=== PATIENT | female | born 1995 | race Caucasian/White ===

== ENCOUNTER 2018-08-31 16:07 | Emergency (ER) | payer SELFPAY ==
[2018-08-31 16:08] VITALS: BP 114/65; PULSE 85; RESP 14; TEMP 36.7; O2SAT 99; BMI 21.4
--- NOTE | 2018-08-31 16:39 | ED.VIS.GEN ---
History of Present Illness Chief Complaint: GI Bleed Informant: Patient Narrative: Patient presents to the ED with lower abdominal cramping. She states that this began several hours ago. She did have 2 large episodes of diarrhea associated with this. Following the 2 episodes of diarrhea. She had a episode of hematochezia. She states that some of her symptoms did improve after this. She has had something similar to this in the past, however has never been evaluated for it. She states this has been ongoing for the last year. She has noticed that when she eats fatty breakfast foods the symptoms occur. She denies any fever, chills, nausea, vomiting. She did not take anything for symptoms. She has no medical problems. No history of abdominal surgeries. Past Medical History - Allergies and Home Meds Allergies/Adverse Reactions: Allergies No Known Allergies Allergy (Verified 08/31/18 16:10) Primary Care Physician: Care Physician,No Primary [Primary Care Provider] - Smoking Status: Current every day smoker Review of Systems General: Denies: Chills, Fever, Sweats Eyes: Denies: Visual changes - bilaterally, Diplopia ENT: Denies: Rhinorrhea, Sore throat Cardiovascular: Denies: Chest pain, Palpitations Respiratory: Denies: Dyspnea, Cough, Dyspnea on exertion Gastrointestinal: Reports: Abdominal pain, Diarrhea, Hematochezia Genitourinary: Denies: Dysuria, Hematuria, Frequency Musculoskeletal: Denies: Back pain, Extremity Pain Skin: Denies: Rash, Wounds Neurological: Denies: Headache, Weakness, Numbness Physical Exam Vital Signs/Narrative: Vital Signs Temp Pulse Resp BP Pulse Ox 08/31/18 16:08 98.1 F 85 14 114/65 99 General: Well nourished, Well developed, No Acute Distress Head: Normocephalic, Atraumatic Eyes: Perrl, EOMI ENT: Moist mucous membranes, No rhinorrhea Neck: Supple, Nontender Cardiovascular: Regular rate, Regular rhythm, No murmurs Respiratory: No distress, CTA bilaterally, Chest nontender Abdomen: Soft, Nondistended, Normal bowel sounds, Tender - Lower. Negative for: Guarding, Rebound tenderness, Psoas sign, Obturator sign, Rovsig's sign, Potter's sign Back: Nontender, Normal Inspection Extremities: Nontender, No edema Skin: Normal color, No rash Neurological: Alert, Oriented x3, Cranial nerves II-XII grossly intact, Normal Strength, Normal Sensation Psychological: Normal affect, Normal Mood Diagnostic/Tx/Re-eval - Medical Decision Making Patient presents to the ED with lower abdominal cramping and 2 episodes of diarrhea this morning. She did have an episode of hematochezia following. She has had this issue chronically. She does not have a PCP. Upon arrival, patient appears well nontoxic. Abdominal exam is very benign. Lab work was obtained and was unremarkable. At this time, I think it is safe the patient be discharged home. She was given a prescription for Bentyl. She was given GI to follow-up with. She was educated on signs/symptoms to return to the ED. She is provided discharge instructions. She is agreeable to plan Disposition: Home stable Impression: Lower abdominal cramping. Diarrhea. Hematochezia. ED Disposition - Plan for ED Patient: Disposition: Home or Assisted Living Diagnosis: Abdominal pain Instructions: Abdominal Pain Prescriptions: Dicyclomine HCl [Bentyl] 20 mg PO TIDAC #30 cap Prescription Printed Referrals: Care Physician,No Primary [Primary Care Provider] - Anurag Posadas MD [NON-STAFF] -
[2018-08-31 17:25] LABS: Absolute Lymphocyte Count 1.59 X10^3/ul (0.83-4.51); Absolute Neutrophil Count 6.3 X10^3/uL (2.0-7.7); Basophil# 0.01 X10^3/uL; Basophil% 0.1 % (0-1); Hematocrit 42.7 % (37-47); Hemoglobin 14.5 g/dl (12.0-15.0); Lymphocyte # 1.59 X10^3/ul (4.0); Lymphocyte % 19.2 % (19-41); Mean Corpuscular Hgb 31.5 pg (27.0-32.0); Mean Corpuscular Volume 92.6 fL (81-99); Mean Platelet Vol. 10.4 fl (6.2-12.0); Monocyte# 0.35 X10^3/uL; Monocyte% 4.2 % (0-10); Neutrophil # 6.33 X10^3/uL (2.7-7.7); Neutrophil % 76.4 % (47-70); Platelet Count 159 K/mm3 (150-450); RBC Distribution Width CV 12.1 % (11.6-14.6); RBC Distribution Width SD 41.1 fl (35.1-43.9); Red Blood Count 4.61 M/mm3 (4.2-5.4); White Blood Count 8.3 K/mm3 (4.4-11.0)
[2018-08-31 17:26] LABS: POSITIVE COUNT NO; POSITIVE DIFFERENTIAL NO; POSITIVE MORPHOLOGY NO
[2018-08-31 17:41] LABS: AST(SGOT) 22 U/L (15-37); Alanine Aminotransfer ALT/SGPT 19 U/L (13-56); Alkaline Phosphatase 77 U/L (45-117); Anion Gap 9 (5-15); BUN 17 mg/dL (7-18); BUN/Creat Ratio 17.4 RATIO (10-20); Calcium,Total 9.2 mg/dL (8.5-10.1); Chloride 105 mmol/L (98-107); Creatinine, Serum 0.98 mg/dL (0.55-1.02); EST Glomerular Filtration Rate 74 mL/min (>60); Est Glom Filt Rate - Afr Amer 89 mL/min (>60); Estimated Creatinine Clearance 89.15 ml/min; Glucose 92 mg/dL (74-106); Lipase 118 U/L (73-393); Sodium Level 140 mmol/L (136-145)
[2018-08-31 17:52] VITALS: BP 104/65; PULSE 65; RESP 15
== END 2018-08-31 17:52 | disposition home or self-care (01) ==
PROVIDERS: Emergency Provider Physician Assistant
DX: R10.30 Lower abdominal pain, unspecified (principal); R19.7 Diarrhea, unspecified; K92.1 Melena; F17.200 Nicotine dependence, unspecified, uncomplicated
CPT/HCPCS: 80053; 83690; 85025; 99285; A4216

== ENCOUNTER 2022-07-21 04:47 | Emergency (ER) | payer MEDICAID, SELFPAY ==
[2022-07-21 04:51] VITALS: BP 111/76; PULSE 70; RESP 18; TEMP 36.4; O2SAT 100; BMI 22.7
--- NOTE | 2022-07-21 05:01 | EX.ED.DYSGE1 ---
HPI History of Present Illness Chief Complaint: Ear Problem Detail of Chief Complaint: Left ear pain Informant: patient Onset/Context/Timing Onset: Days (4 to 5 days) Context: Gradual Onset Current Severity: Moderate Maximum Severity: Severe Narrative Narrative: Patient presents secondary to left ear pain. She states pain started 4 to 5 days ago and was rather mild in onset. It is progressively worsened each day. It bothered her enough yesterday that she put in request to establish care with a primary care physician to have it evaluated. Tonight she was unable to sleep secondary to pain. She has been taking Advil and Tylenol without improvement. She reports pain in the left ear that radiates down along her left jaw. PFSH PFSH Medical History no medical history no medical history Home Medications amoxicillin 875 mg-potassium clavulanate 125 mg tablet 1 tab PO BID #20 tabs 07/21/22 [Rx Last Taken Unknown] naproxen 500 mg tablet (Naprosyn) 500 mg PO BID PRN pain #20 tabs 07/21/22 [Rx Last Taken Unknown] Allergy/AdvReac Type Severity Reaction Status Date / Time No Known Allergies Allergy Verified 07/21/22 04:48 Surgical History no surgical history Social History Smoking Status: Current every day smoker tobacco type: e-cigarettes ROS ROS ED Constitutional Constitutional ED: Denies chills or fever(s) Eyes Eyes: Denies change in vision or discharge from eye(s) ENT ENT ED: Reports ear pain left; Denies discharge from eye(s), rhinorrhea or sore throat Cardiovascular Cardiovascular: Denies chest pain or palpitations Respiratory/Chest Respiratory/Chest: Denies cough or dyspnea Gastrointestinal Gastrointestinal: Denies abdominal pain, nausea or vomiting Genitourinary Genitourinary ED: Denies dysuria Musculoskeletal Musculoskeletal: Denies back pain or extremity pain Integumentary Denies Abrasions or rash Neurologic Neurologic: Denies headache(s) or weakness Allergic/Immunologic Allergic/Immunologic ED: Denies lip swelling or urticaria EXAM Physical Exam Const Vital Signs: 07/21/22 04:51 Temperature 97.5 F L Temperature Source Oral Pulse Rate 70 Respiratory Rate 18 Blood Pressure 111/76 Blood Pressure Mean 87 Pulse Ox 100 Oxygen Delivery Method Room Air Positive well nourished and well developed General Appearance ED: well developed HEENT Reports normocephalic and head/scalp atraumatic HEENT Narrative: Right TM is clear. Left TM has white fluid behind the membrane. Intraoral examination reveals fractured left mandibular third molar with mild surrounding gum edema. Posterior pharynx examination is normal. There is no trismus. Eyes PERRL and EOMs intact bilaterally Neck supple Chest Wall inspection of chest normal and palpation of chest normal Resp normal respiratory effort and clear to auscultation bilaterally Cardio regular rate and regular rhythm GI normal to inspection, nondistended, normoactive bowel sounds Palpation: soft Extremity normal to inspection Neuro oriented x3 and no sensory deficits noted Sensorium / Orientation: alert Motor Exam: strength 5/5 throughout Psych mental status grossly normal Skin no rashes or lesions noted MDM MDM MDM Narrative Medical decision making narrative: Patient does have evidence of left otitis media along with a dental infection. She will be treated with a course of Augmentin. I will also write her a prescription for naproxen. She will be given a single dose of Gregory here for pain but will not be given any narcotics for home. Patient is comfortable with this plan. Discharge Plan Triage Chief Complaint: Ear Problem ED Provider: Maddy Childs Dx/Rx/DC Orders Clinical Impression: Left otitis media, Odontalgia Instructions: ED Dental Pain, ED Otitis Media Antibiotic ... Prescriptions: New naproxen [Naprosyn] 500 mg tablet 500 mg PO BID PRN (Reason: pain) Qty: 20 0RF amoxicillin-pot clavulanate 875-125 mg tablet 1 tab PO BID Qty: 20 0RF Primary Care Provider: Care Physician,No Primary Referrals: Care Physician,No Primary [Primary Care Provider] - Activity Restrictions/Additional Instructions: You called yesterday to establish a primary care physician. Please follow-up with that provider. Disposition Disposition: Home, Self Care
[2022-07-21] MEDS: HYDROcodone Bitartrate/Apap 5/325 Tablet PO (05:11)
[2022-07-21] MEDS: Amox/Clavulanate 875 MG Tablet PO (05:11)
[2022-07-21] MEDS: Naproxen 500 MG Tablet PO (05:11)
== END 2022-07-21 05:26 | disposition home or self-care (01) ==
PROVIDERS: Emergency Provider Emergency Medicine; Visit Provider Emergency Medicine
DX: H66.92 Otitis media, unspecified, left ear (principal); K08.89 Other specified disorders of teeth and supporting structures; F17.290 Nicotine dependence, other tobacco product, uncomplicated
CPT/HCPCS: 99283

== ENCOUNTER 2023-03-23 06:50 | Emergency (ER) | payer MEDICAID, SELFPAY ==
[2023-03-23 06:51] VITALS: BP 122/79; PULSE 70; RESP 16; TEMP 35.8; O2SAT 95; BMI 25.6
--- NOTE | 2023-03-23 06:56 | ED.VIS.DENTA ---
HPI History of Present Illness Chief Complaint: Dental Informant: patient Narrative Narrative: 27-year-old female started having gradual onset dental pain left mandibular molar couple days ago, this morning it is severe to the point where she is having trouble sleeping. She has been taking Advil and it is helping some, tried naproxen which did not help at all. Decay on the affected tooth is not new. She denies any facial swelling or bleeding from the gums/tooth. No purulent nasal discharge. PFSH PFSH Medical History no medical history no medical history Home Medications amoxicillin 500 mg tablet 500 mg PO TID #30 tabs 03/23/23 [Rx Last Taken Unknown] tramadol 50 mg tablet 50 mg PO Q6H PRN pain 3 days #12 tabs 03/23/23 [Rx Last Taken Unknown] Allergy/AdvReac Type Severity Reaction Status Date / Time No Known Allergies Allergy Verified 03/23/23 06:50 Surgical History no surgical history Social History Smoking Status: Current every day smoker tobacco type: e-cigarettes ROS ROS ED Constitutional Constitutional ED: Denies chills or fever(s) Eyes Eyes: Denies change in vision or double vision ENT ENT ED: Reports dental pain; Denies sinus pain or throat swelling Cardiovascular Cardiovascular: Denies chest pain or palpitations Respiratory/Chest Respiratory/Chest: Denies cough or dyspnea Integumentary Denies abscess or rash Neurologic Neurologic: Denies headache(s), paresthesias or weakness EXAM Physical Exam Const Vital Signs: 03/23/23 06:51 Temperature 96.4 F L Temperature Source Temporal Pulse Rate 70 Respiratory Rate 16 Blood Pressure 122/79 H Blood Pressure Mean 93 Pulse Ox 95 Oxygen Delivery Method Room Air Positive well nourished and well developed General Appearance ED: well developed and NAD HEENT HEENT Narrative: Tender significant decay in tooth #18. #19 is decayed as well but nontender. There is no associated abscess with either one of them, no gingival necrosis or bleeding or hyperemia. No trismus. Tongue no elevation, floor of mouth is soft nondistended. No external facial swelling or asymmetry. No dysphonia. Face and Sinus: sinuses nontender Throat: posterior oropharynx normal Eyes PERRL and EOMs intact bilaterally Neck no lymphadenopathy and supple Resp normal respiratory effort Neuro oriented x3 and CN's II-XII intact bilaterally Sensorium / Orientation: alert Gait (Neuro): normal gait Psych mental status grossly normal and thought process normal Skin no rashes or lesions noted and no wounds MDM MDM MDM Narrative Medical decision making narrative: Likely early dental infection with multifocal decay, dental follow-up recommended I recommend antibiotics, start her on amoxicillin as well as a short prescription for tramadol after checking an [facility] report that is completely negative. She is comfortable with that plan. Discharge Plan Triage Chief Complaint: Dental ED Provider: Derick García Dx/Rx/DC Orders Clinical Impression: Dental decay, Odontalgia Instructions: ED Dental Pain Prescriptions: New tramadol 50 mg tablet 50 mg PO Q6H PRN (Reason: pain) 3 Days Qty: 12 0RF amoxicillin 500 mg tablet 500 mg PO TID Qty: 30 0RF Primary Care Provider: Care Physician,No Primary Referrals: Dentist,Your [STAFF PHYSICIAN] - As soon as possible Disposition Disposition: Home, Self Care
[2023-03-23] MEDS: AMOXICILLIN 500 MG CAPSULE PO (07:02)
--- OUTSIDE RECORDS SUMMARY | 2023-03-23 07:33 | XMS RPT_ITS | CCD ---
Author Name Unknown Address [address] [place] [address] Organization [facility] Care Team Providers Care Contract Engineer Name Role Phone Cathi IT PROFESSIONALGuille AYALA Primary Care Provider GUILLE GATES Primary Care Unavailable GUILLE GATES Attending Unavailable GUILLE GATES Primary Care Unavailable SHAKIRA BLEDSOE Attending Unavailable GUILLE GATES Referring Unavailable GUILLE GATES Primary Care Unavailable GUILLE GATES Referring Unavailable GUILLE GATES Primary Care Unavailable GUILLE GATES Attending Unavailable Medications Completed/Discontinued Medications Medication Drug Class(es) Dates Sig (Normalized) Sig (Original) busPIRone hydrochloride 5 mg oral tablet (6 sources) Start: 10-17-2022 End: 11-16-2022 take 1 tablet by mouth twice daily as needed busPIRone (BUSPAR) 5 mg tablet Indications: Anxiety with depression Take 1 tablet by mouth twice daily. May take third dose as needed. 180 tablet 1 11/16/2022 Active Problems Active Problems Problem Classification Problem Date Documented Da te Episodic/Chronic Anxiety disorders (2 sources) Mixed anxiety and depressive disorder; Translations: [Other specified anxiety disorders] Onset: 3 11-16-2022 Chronic Esophageal disorders (5 sources) Gastroesophageal reflux disease; Translations: [Gastro-esophageal reflux disease without esophagitis] Onset: 1 04-11-2010 Chronic Headache; including migraine (2 sources) Thunderclap headache; Translations: [Primary thunderclap headache] Onset: 3 11-16-2022 Episodic Immunizations and screening for infectious disease (6 sources) Patient encounter status; Translations: [Encounter for screening for human papillomavirus (HPV)] Onset: 3 10-26-2022 Episodic Menstrual disorders (2 sources) Irregular periods; Translations: [Irregular menstruation, unspecified] Onset: 1 02-21-2021 Chronic Other gastrointestinal disorders (3 sources) Irritable bowel syndrome; Translations: [Irritable bowel syndrome without diarrhea] Onset: 7 10-26-2022 Chronic Other screening for suspected conditions (not mental disorders or infectious disease) (4 sources) Cancer cervix screening status; Translations: [Encounter for screening for malignant neoplasm of cervix] Onset: 3 10-26-2022 Episodic Residual codes; unclassified (1 source) Family history of other endocrine, nutritional and metabolic diseases; Translations: [Family history of hypothyroidism] Onset: 3 Episodic Past or Other Problems Problem Classification Problem Date Documented Da te Episodic/Chronic Residual codes; unclassified (5 sources) Insomnia; Translations: [Insomnia, unspecified] Onset: 04-11-2010 04-11-2010 Episodic Results Test Name Value Interpretation Reference Range Facil ity Vital Signs Date Time Vital Sign Value Performing Clinician Faci lity 11-16-2022 18:46-0400 Body weight 66.68 kg Guille Gates IT PROFESSIONAL.LIBRARIAN ASSISTANT Work Phone: [facility] 11-16-2022 18:46-0400 Diastolic blood pressure 66 mm[Hg] Guille Gates IT PROFESSIONAL.LIBRARIAN ASSISTANT Work Phone: [facility] 11-16-2022 18:46-0400 Heart rate 72 /min Guille Gates IT PROFESSIONAL.LIBRARIAN ASSISTANT Work Phone: [facility] 11-16-2022 18:46-0400 Respiratory rate 14 /min Guille Gates IT PROFESSIONAL.LIBRARIAN ASSISTANT Work Phone: [facility] 11-16-2022 18:46-0400 Systolic blood pressure 104 mm[Hg] Guille Gates IT PROFESSIONAL.LIBRARIAN ASSISTANT Work Phone: [facility] 10-26-2022 10:51-0400 Body height 172.7 cm Shakira Lucas IT PROFESSIONAL.LIBRARIAN ASSISTANT Work Phone: [facility] 10-26-2022 10:51-0400 Body weight 65.14 kg Shakira [place] IT PROFESSIONAL.LIBRARIAN ASSISTANT Work Phone: [facility] 10-26-2022 10:51-0400 Diastolic blood pressure 60 mm[Hg] Shakira [place] IT PROFESSIONAL.LIBRARIAN ASSISTANT Work Phone: [facility] 10-26-2022 10:51-0400 Systolic blood pressure 100 mm[Hg] Shakira Lucas IT PROFESSIONAL.LIBRARIAN ASSISTANT Work Phone: [facility] Encounters Encounter Date Encounter Type Care Provider Facility Start: 12-11-2022 ambulatory Guille olson IT PROFESSIONAL.LIBRARIAN ASSISTANT Work Phone: [facility] Plan of Treatment Date Care Activity Detail Author Start: 10-17-2032 Urine microalbumin profile [facility] Start: 10-26-2025 Pap Testing Pap Testing [facility] Start: 11-26-2022 PAP TESTING PAP TESTING [facility] Immunizations Immunization Date Immunization Notes Care Provider Fa cili 10-17-2022 tetanus toxoid, redu lyndon diphtheria toxoid, and acellular pertussis vaccine, adsorbed Dominic Taylor Therapist Work Phone: [facility] 09-06-2010 human papilloma viru s vaccine, quadrivalent Dominic Taylor Therapist Work Phone: [facility] 05-05-2010 human papilloma viru s vaccine, quadrivalent Dominic Taylor Therapist Work Phone: [facility] 03-07-2010 human papilloma viru s vaccine, quadrivalent Dominic Taylor Therapist Work Phone: [facility] Work Phone: 01-03-2010 influenza virus vaccine, unspecified formulation Dominic Taylor Therapist Work Phone: [facility] 01-03-2010 Meningococcal, MCV4, unspecified conjugate formulation(groups A, C, Y and W-135) Dominic Taylor Therapist Work Phone: [facility] 01-03-2010 tetanus toxoid, redu lyndon diphtheria toxoid, and acellular pertussis vaccine, adsorbed Dominic Taylor Therapist Work Phone: [facility] 06-18-1995 DTP-Haemophilus influenzae type b conjugate vaccine Dominic Taylor Therapist Work Phone: [facility] Work Phone: 06-18-1995 haemophilus influenz ae type b vaccine, conjugate unspecified formulation Dominic Taylor Therapist Work Phone: [facility] 06-18-1995 poliovirus vaccine, inactivated Dominic Taylor Therapist Work Phone: [facility] 06-18-1995 trivalent poliovirus vaccine, live, oral Dominic Taylor Therapist Work Phone: [facility] 02-20-1995 DTP-Haemophilus influenzae type b conjugate vaccine Dominic Taylor Therapist Work Phone: [facility] Work Phone: 02-20-1995 haemophilus influenz ae type b vaccine, conjugate unspecified formulation Dominic Taylor Therapist Work Phone: [facility] 02-20-1995 hepatitis B vaccine, adult dosage Dominic Taylor Therapist Work Phone: [facility] 02-20-1995 hepatitis B vaccine, pediatric or pediatric/adolescent dosage Dominic Taylor Therapist Work Phone: [facility] 02-20-1995 measles, mumps and rubella virus vaccine Dominic Taylor Therapist Work Phone: [facility] 02-20-1995 poliovirus vaccine, inactivated Dominic Taylor Therapist Work Phone: [facility] 02-20-1995 trivalent poliovirus vaccine, live, oral Dominic Taylor Therapist Work Phone: [facility] 01-13-1994 diphtheria, tetanus toxoids and acellular pertussis vaccine Dominic Taylor Therapist Work Phone: [facility] Work Phone: 01-13-1994 haemophilus influenz ae type b vaccine, conjugate unspecified formulation Dominic Taylor Therapist Work Phone: [facility] 01-13-1994 hepatitis B vaccine, adult dosage Dominic Taylor Therapist Work Phone: [facility] 01-13-1994 hepatitis B vaccine, pediatric or pediatric/adolescent dosage Dominic Taylor Therapist Work Phone: [facility] 01-13-1994 poliovirus vaccine, inactivated Dominic Taylor Therapist Work Phone: [facility] 01-13-1994 trivalent poliovirus vaccine, live, oral Dominic Taylor Therapist Work Phone: [facility] 1993 hepatitis B vaccine, adult dosage Dominic Taylor Therapist Work Phone: [facility] 1993 hepatitis B vaccine, pediatric or pediatric/adolescent dosage Dominic Taylor Therapist Work Phone: [facility] Payers Date Payer Category Payer Medicaid [facility] [id number] 2022-Present [phone] [place] [address] Medicaid [id number] 2022 Unknown [id number] Social History Date Type Detail Facility Start: 10-17-2022 End: 10-26-2022 Tobacco smoking status NHIS Smokes tobacco daily [facility] Work Phone: History of tobacco use Cigarette Smoker [facility] Work Phone: Start: 10-17-2022 End: 10-26-2022 Cigarettes smoked current (pack per day) - Reported 1 [facility] Start: 10-17-2022 End: 10-26-2022 Tobacco use and exposure Smokeless tobacco non-user [facility] Work Phone: Start: 10-17-2022 End: 10-26-2022 Alcohol intake Current drinker of alcohol (finding) [facility] Start: 10-17-2022 End: 10-26-2022 Social connection and isolation panel [facility] Do you belong to any clubs or organizations such as latter day groups, unions, fraternal or athletic groups, or school groups? No [facility] Are you now , , , , never or living with a partner? Living with partner [facility] How often to you hav e a drink containing alcohol? Monthly or less [facility] How many standard dr inks containing alcohol do you have on a typical day? 1 or 2 [facility] How often do you hav e 6 or more drinks on 1 occasion? Never [facility] How hard is it for y ou to pay for the very basics like food, housing, medical care, and heating Not very hard [facility] Adult Depression Scr eening Assessment 2 [facility] Do you feel stress - tense, restless, nervous, or anxious, or unable to sleep at night because your mind is troubled all the time - these days [OSQ] Very much [facility] (I/We) worried wheth er (my/our) food would run out before (I/we) got money to buy more. Never true [facility] Start: 05-05-2016 Alcohol Comment Rarely [facility] Start: 1995 Sex Assigned At Not on file [facility] History of tobacco use Passive smoker [facility] Work Phone: Clinical Notes 04-11-2010 to 12-11-2022 Telephone Encounter - Christine Carvalho Ma - 12/11/2022 2:09 PM EDTGuille Gates APRN.CATY - 11/16/2022 6:49 PM EDTMetShakira carlos APRN.CATY - 10/26/2022 10:51 AM EDT Note Date & Type Note Facility 12-11-2022 Miscellaneous Notes See pt message and advise. Christine Carvalho Ma documented in this encounter [facility] 11-16-2022 Note HNO ID: [id number] Author: Guille Gates APRN.LIBRARIAN ASSISTANT Service: ? Author Type: Nurse Practitioner Type: Progress Notes Filed: 11/16/2022 7:01 PM Note Text: Chief Complaint Patient presents with: Follow Up HPI Esther Suero is a 27 year old female who presents here today for Above Complaints.. Patient presents for med follow up. Patient was started on buspar 10/17 and reports she was doing well. Patient states she is taking buspar nightly and then during the day as needed. Patient also reports she has intermittent episodes of AMS, tinnitus, weakness. Patient denies headache with symptoms. Past medical history, appointments, medications, allergies reviewed. Previous Medical History PAST MEDICAL HISTORY Diagnosis Date Anxiety and depression Implanon Insertion 01/26/2011 Dr. Herndon Previous Surgical History PAST SURGICAL HISTORY Procedure Laterality Date IMPLANON INSERTION 01/26/2011 Dr. Herndon/Dr Hutton IMPLANON REMOVAL 2017 INDUCED HX 10/02/2022 Family History FAMILY HISTORY Problem Relation Age of Onset Headache Mother migraine Psychiatry Mother depression Seizures Maternal Grandmother depression Diabetes Paternal Grandmother Thyroid Paternal Grandmother hypothyroidism Diabetes Paternal Aunt Patient Allergies ALLERGIES No Known Allergies Current Medications Current Outpatient Medications on File Prior to Visit Medication Sig busPIRone (BUSPAR) 5 mg tablet Take 1 tablet by mouth twice daily. May take third dose as needed. ibuprofen 200 mg ORAL tablet Take 1-2 tablet's) every four(4) to six(6) hours as needed for pain with food No current facility-administered medications on file prior to visit. Social History Social History Tobacco Use Smoking status: Every Day Packs/day: 1 Types: Cigarettes Passive exposure: Current Smokeless tobacco: Never Vaping Use Vaping Use: Former Substances: Nicotine Devices: Disposable Substance Use Topics Alcohol use: Yes Comment: Rarely Drug use: Yes Types: Marijuana Comment: occasionally Review of Symptoms REVIEW OF SYSTEMS SEE HPI EXAM: BP 104/66 Pulse 72 Resp 14 Wt 66.7 kg (147 lb) LMP 08/26/2022 BMI 22.35 kg/m? General Appearance: Well appearing, alert, in no acute distress, well-hydrated, well nourished.. Health Maintenance List Pneumococcal Vaccine(1 - PCV) Never done Covid-19 Vaccine(3 - Moderna series) due on 10/19/2020 Influenza Vaccine(1) due on 10/27/2022 Pap Testing due on 10/26/2025 DTaP,Tdap,Td Vaccine(4 - Td or Tdap) due on 10/17/2032 Hepatitis B Vaccine Completed HPV Vaccine Completed Depression Assessment Completed Hepatitis C Screening Completed HIV Screening Completed ASSESSMENT/PLAN: 1. Thunderclap headache - ICD9: 784.0, ICD10: G44.53 (primary diagnosis) - MRI BRAIN WO IVCON 2. Anxiety with depression - ICD9: 300.4, ICD10: F41.8 - BUSPIRONE 5 MG TABLET Guille Gates APRN.[facility] 11-16-2022 History of Presen t illness Narrative Chief Complaint Patient presents with: Follow Up HPI Esther Suero is a 27 year old female who presents here today for Above Complaints.. Patient presents for med follow up. Patient was started on buspar 10/17 and reports she was doing well. Patient states she is taking buspar nightly and then during the day as needed. Patient also reports she has intermittent episodes of AMS, tinnitus, weakness. Patient denies headache with symptoms. Past medical history, appointments, medications, allergies reviewed. Previous Medical History PAST MEDICAL HISTORY Diagnosis Date Anxiety and depression Implanon Insertion 01/26/2011 Dr. Herndon Previous Surgical History PAST SURGICAL HISTORY Procedure Laterality Date IMPLANON INSERTION 01/26/2011 Dr. Herndon/Dr Hutton IMPLANON REMOVAL 2017 INDUCED HX 10/02/2022 Family History FAMILY HISTORY Problem Relation Age of Onset Headache Mother migraine Psychiatry Mother depression Seizures Maternal Grandmother depression Diabetes Paternal Grandmother Thyroid Paternal Grandmother hypothyroidism Diabetes Paternal Aunt Patient Allergies ALLERGIES No Known Allergies Current Medications Current Outpatient Medications on File Prior to Visit Medication Sig busPIRone (BUSPAR) 5 mg tablet Take 1 tablet by mouth twice daily. May take third dose as needed. ibuprofen 200 mg ORAL tablet Take 1-2 tablet's) every four(4) to six(6) hours as needed for pain with food No current facility-administered medications on file prior to visit. Social History Social History Tobacco Use Smoking status: Every Day Packs/day: 1 Types: Cigarettes Passive exposure: Current Smokeless tobacco: Never Vaping Use Vaping Use: Former Substances: Nicotine Devices: Disposable Substance Use Topics Alcohol use: Yes Comment: Rarely Drug use: Yes Types: Marijuana Comment: occasionally Review of Symptoms REVIEW OF SYSTEMS SEE HPI EXAM: BP 104/66 Pulse 72 Resp 14 Wt 66.7 kg (147 lb) LMP 08/26/2022 BMI 22.35 kg/m General Appearance: Well appearing, alert, in no acute distress, well-hydrated, well nourished.. Health Maintenance List Pneumococcal Vaccine(1 - PCV) Never done Covid-19 Vaccine(3 - Moderna series) due on 10/19/2020 Influenza Vaccine(1) due on 10/27/2022 Pap Testing due on 10/26/2025 DTaP,Tdap,Td Vaccine(4 - Td or Tdap) due on 10/17/2032 Hepatitis B Vaccine Completed HPV Vaccine Completed Depression Assessment Completed Hepatitis C Screening Completed HIV Screening Completed ASSESSMENT/PLAN: 1. Thunderclap headache - ICD9: 784.0, ICD10: G44.53 (primary diagnosis) - MRI BRAIN WO IVCON 2. Anxiety with depression - ICD9: 300.4, ICD10: F41.8 - BUSPIRONE 5 MG TABLET Guille Gates APRN.LIBRARIAN ASSISTANT documented in this encounter [facility] 10-26-2022 Note HNO ID: [id number] Author: Shakira Bledsoe APRN.CATY Service: ? Author Type: Nurse Practitioner Type: Progress Notes Filed: 10/26/2022 11:36 AM Note Text: Esther is a 26 year old who presents for an annual gynecologic exam without complaints. Menses: cycles every 25-30 days and 3-4 days of flow. Contraception: none HPV vaccine: Yes Last Pap: 05/15/2016 normal HPV: N/A History of abnormal pap: No Last mammogram: never Sexually active: Yes History of STDS: None Patient concerns for STD exposure: No. Pain with intercourse: Yes positions deep Postcoital bleeding: No OB History T0 L0 SAB0 IAB0 Ectopic0 Multiple0 Live Births0 Elevator Technician History LMP: 08/26/2022, Having periods Age at Menarche: Age at First : Age at Menopause: Elevator Technician History Comments: Sexual Activity: Yes; Male Contraception: None PAST MEDICAL HISTORY Diagnosis Date Anxiety and depression Implanon Insertion 01/26/2011 Dr. Herndon PAST SURGICAL HISTORY Procedure Laterality Date IMPLANON INSERTION 01/26/2011 Dr. Herndon/Dr Hutton IMPLANON REMOVAL 2017 INDUCED HX 10/02/2022 FAMILY HISTORY Problem Relation Age of Onset Headache Mother migraine Psychiatry Mother depression Seizures Maternal Grandmother depression Diabetes Paternal Grandmother Thyroid Paternal Grandmother hypothyroidism Diabetes Paternal Aunt SOCIAL HISTORY Social History Tobacco Use Smoking status: Every Day Packs/day: 1 Types: Cigarettes Passive exposure: Current Smokeless tobacco: Never Vaping Use Vaping Use: Former Substances: Nicotine Devices: Disposable Substance Use Topics Alcohol use: Yes Comment: Rarely Drug use: Yes Types: Marijuana Comment: occasionally REVIEW OF SYSTEMS Abdomen: No abdominal pain, nausea, vomiting, diarrhea, or constipation. No bloating, early satiety, indigestion, or increased flatulence. Bladder: No dysuria, gross hematuria, urinary frequency, urinary urgency, or incontinence. Breast: No breast lumps, nipple d/c, overlying skin changes, redness or skin retraction. Allergies and current medication updated:Yes EXAM: Ht 5' 8 (1.73m) Wt 143 lb 9.6 oz (65.1kg) LMP 08/26/2022 BMI 21.84 kg/(m2). GENERAL: pleasant, female in no apparent distress HEENT: Normocephalic, atraumatic, mucus membranes moist, and no lesions NECK: Supple, full range of motion, no adenopathy, and thyroid normal DERMATOLOGY: Normal, without lesions, non-icteric, and non-hirsute BREAST: soft, non-tender, symmetric, no dominant mass, normal nipple-areolar complex, no lymphadenopathy, and no nipple discharge CHEST: Normal inspiratory effort ABDOMEN: soft, non-tender, and no masses PELVIC: external genitalia normal, normal Bartholin's glands, urethra, [place]ger[place]'s glands, no vulvar lesions, no cervical lesions, good vaginal support, physiologic discharge present, normal appearing perineal body and perianal region BIMANUAL: uterus normal size, shape and consistency, no adnexal masses, and non-tender RECTOVAGINAL: deferred. NEURO: alert and oriented x3,exam grossly non-focal EXTREMITIES: normal ASSESSMENT/PLAN: 1) Health maintenance: Pap done with reflex HPV. Mammogram starting age 40. Nutrition, exercise and routine health maintenance exams reviewed. Calcium/Vitamin D supplementation information provided. 2) Contraception: none. Contraceptive options reviewed and information provided. 3) STD screening: Accepted STD check for Gonorrhea and Chlamydia. 4) Follow up one year or sooner as needed Shakira Bledsoe APRN.[facility] 10-26-2022 History of Presen t illness Narrative Esther is a 26 year old who presents for an annual gynecologic exam without complaints. Menses: cycles every 25-30 days and 3-4 days of flow. Contraception: none HPV vaccine: Yes Last Pap: 05/15/2016 normal HPV: N/A History of abnormal pap: No Last mammogram: never Sexually active: Yes History of STDS: None Patient concerns for STD exposure: No. Pain with intercourse: Yes positions deep Postcoital bleeding: No OB History T0 L0 SAB0 IAB0 Ectopic0 Multiple0 Live Births0 Elevator Technician History LMP: 08/26/2022, Having periods Age at Menarche: Age at First : Age at Menopause: Elevator Technician History Comments: Sexual Activity: Yes; Male Contraception: None PAST MEDICAL HISTORY Diagnosis Date Anxiety and depression Implanon Insertion 01/26/2011 Dr. Herndon PAST SURGICAL HISTORY Procedure Laterality Date IMPLANON INSERTION 01/26/2011 Dr. Herndon/Dr Hutton IMPLANON REMOVAL 2017 INDUCED HX 10/02/2022 FAMILY HISTORY Problem Relation Age of Onset Headache Mother migraine Psychiatry Mother depression Seizures Maternal Grandmother depression Diabetes Paternal Grandmother Thyroid Paternal Grandmother hypothyroidism Diabetes Paternal Aunt SOCIAL HISTORY Social History Tobacco Use Smoking status: Every Day Packs/day: 1 Types: Cigarettes Passive exposure: Current Smokeless tobacco: Never Vaping Use Vaping Use: Former Substances: Nicotine Devices: Disposable Substance Use Topics Alcohol use: Yes Comment: Rarely Drug use: Yes Types: Marijuana Comment: occasionally REVIEW OF SYSTEMS Abdomen: No abdominal pain, nausea, vomiting, diarrhea, or constipation. No bloating, early satiety, indigestion, or increased flatulence. Bladder: No dysuria, gross hematuria, urinary frequency, urinary urgency, or incontinence. Breast: No breast lumps, nipple d/c, overlying skin changes, redness or skin retraction. Allergies and current medication updated:Yes EXAM: Ht 5' 8 (1.73m) Wt 143 lb 9.6 oz (65.1kg) LMP 08/26/2022 BMI 21.84 kg/(m^2). GENERAL: pleasant, female in no apparent distress HEENT: Normocephalic, atraumatic, mucus membranes moist, and no lesions NECK: Supple, full range of motion, no adenopathy, and thyroid normal DERMATOLOGY: Normal, without lesions, non-icteric, and non-hirsute BREAST: soft, non-tender, symmetric, no dominant mass, normal nipple-areolar complex, no lymphadenopathy, and no nipple discharge CHEST: Normal inspiratory effort ABDOMEN: soft, non-tender, and no masses PELVIC: external genitalia normal, normal Bartholin's glands, urethra, [place]'s glands, no vulvar lesions, no cervical lesions, good vaginal support, physiologic discharge present, normal appearing perineal body and perianal region BIMANUAL: uterus normal size, shape and consistency, no adnexal masses, and non-tender RECTOVAGINAL: deferred. NEURO: alert and oriented x3,exam grossly non-focal EXTREMITIES: normal ASSESSMENT/PLAN: 1) Health maintenance: Pap done with reflex HPV. Mammogram starting age 40. Nutrition, exercise and routine health maintenance exams reviewed. Calcium/Vitamin D supplementation information provided. 2) Contraception: none. Contraceptive options reviewed and information provided. 3) STD screening: Accepted STD check for Gonorrhea and Chlamydia. 4) Follow up one year or sooner as needed Shakira Bledsoe APRN.CATY documented in this encounter [facility] 10-19-2022 Miscellaneous Notes Patient active on mychart- message sent Anais Blakely Cma Please let patient know her cholesterol is slightly elevated but her labs are otherwise normal. documented in this encounter [facility] 10-18-2022 Miscellaneous Notes Behavioral Health Social Work Progress Note Patient identified for [facility] from: PCP Reason for referral: Resources Behavioral Health Resources: Psychology - talk therapy [facility] encounter type: MyChart Message Attempts to Outreach: 2 attempts Final Disposition: Resources given Patient Discharged?: No Patient reported that caregiver was able to meet their needs today?: N/A [facility] attempted to contact Pt at the request of PCP to discuss resources for therapy. [facility] LVM with direct contact details and requested a call back. [facility] also sent a MC message with resources and encouraged Pt to contact [facility] with questions. GALDINO Gonzalez October 18, 2022 documented in this encounter [facility] 10-17-2022 Note HNO ID: [id number] Author: Guille Gates APRN.LIBRARIAN ASSISTANT Service: ? Author Type: Nurse Practitioner Type: Progress Notes Filed: 10/17/2022 3:55 PM Note Text: Chief Complaint Patient presents with: Physical HPI Esther Suero is a 26 year old female who presents here today for Above Complaints.. Patient presents to [facility] care. Patient denies current concerns regarding her health. Patient does report difficulty with anxiety and sleep. Past medical history, appointments, medications, allergies reviewed. Previous Medical History PAST MEDICAL HISTORY Diagnosis Date Implanon Insertion 01/26/2011 Dr. Herndon Previous Surgical History PAST SURGICAL HISTORY Procedure Laterality Date IMPLANON INSERTION 01/26/11, 12/02/2013 Dr. Herndon/Dr Hutton Family History FAMILY HISTORY Problem Relation Age of Onset Headache Mother migraine Psychiatry Mother depression Seizures Maternal Grandmother depression Diabetes Paternal Grandmother Thyroid Paternal Grandmother hypothyroidism Diabetes Paternal Aunt Patient Allergies ALLERGIES No Known Allergies Current Medications Current Outpatient Medications on File Prior to Visit Medication Sig Ethinyl Estradiol-Norelgestrom (XULANE) 150-35 mcg/24 hr Apply 1 Patch as directed once each week. (Patient not taking: Reported on 04/29/2019 ) loratadine (CLARITIN) 10 mg tablet Take 1 tablet by mouth once daily. (Patient not taking: Reported on 04/29/2019 ) fluticasone (FLONASE) 50 mcg/actuation nasal spray Use 2 Sprays in each nostril once daily. (Patient not taking: Reported on 04/29/2019 ) varenicline (CHANTIX CONTINUING MONTH JOVANNI) 1 mg tablet Take 1 tablet by mouth twice daily. (Patient not taking: Reported on 04/29/2019 ) Varenicline (CHANTIX) 0.5 mg (11)- 1 mg (42) tablet Take 0.5 mg daily x 3 days, then twice daily for 4 days, then 1mg twice daily for duration. (Patient not taking: Reported on 04/29/2019 ) ibuprofen 200 mg ORAL tablet Take 1-2 tablet's) every four(4) to six(6) hours as needed for pain with food No current facility-administered medications on file prior to visit. Social History Social History Tobacco Use Smoking status: Every Day Packs/day: .5 Types: Cigarettes Smokeless tobacco: Never Tobacco comments: pt reports less than 1/2 pack daily Substance Use Topics Alcohol use: Yes Comment: Rarely Drug use: No Review of Symptoms REVIEW OF SYSTEMS GENERAL: No weight loss, malaise or fevers HEENT: No changes in hearing or vision, no nose bleeds or other nasal problems NECK: Negative for lumps, goiter, pain and significant neck swelling RESPIRATORY: Shortness of breath CARDIOVASCULAR: palpitations GI: Positive for diarrhea : No history of dysuria, frequency or incontinence 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 General Appearance: Well appearing, alert, in no acute distress, well-hydrated, well nourished.. Skin: Skin color, texture, turgor normal, no suspicious rashes or lesions. Neck: Supple, no adenopathy; thyroid symmetric, normal size, no bruits. Lungs: Lungs clear to auscultation. No wheezing, rhonchi, rales.. Heart: RRR without murmur, gallop, or rubs. No ectopy. Abdomen: Normal abdominal exam, Abdomen soft, non-tender. Bowel sounds normal. No masses, organomegaly Extremities: No deformities, edema, skin discoloration, clubbing or cyanosis. Good capillary refill. . Peripheral Pulses: Normal. Neurologic: Gait normal. Reflexes normal and symmetric. Sensation grossly intact.. Health Maintenance List COVID-19 VACCINE(1) Never done PNEUMOCOCCAL(1 - PCV) Never done HEPATITIS C SCREENING Never done HIV SCREENING Never done PAP TESTING due on 05/06/2019 DTAP,TDAP,TD(3 - Td or Tdap) due on 01/04/2020 DEPRESSION ASSESSMENT Never done INFLUENZA(1) due on 10/27/2022 HEPATITIS B Completed HPV VACCINE Completed PHQ9:19 GAD7:16 ASSESSMENT/PLAN: 1. Encounter for Papanicolaou smear of vagina - ICD9: V76.47, ICD10: Z12.72 (primary diagnosis) - CONSULT TO GUM MACHINE FILLER 2. Encounter for immunization - ICD9: V03.89, ICD10: Z23 - TDAP VACCINE, AGE 7+ YR (ADACEL, BOOSTRIX) 3. Family history of hypothyroidism - ICD9: V18.19, ICD10: Z83.49 - TSH BLD 4. Wellness examination - ICD9: V70.0, ICD10: Z00.00 - Counseled on healthy diet and regular exercise - Calcium intake w (more content not included)... [facility] documented as of this encounter (statuses as of 10/26/2022) [facility] History of Past illness Narrative* Problem Noted Date Diagnosed Date Resolved Date Menstrual irregularity 04/11/201010/26 Overview: On SPrintec to regulate periods. Not sexually active per patient. documented as of this encounter (statuses as of 11/17/2022) [facility] History of Past illness Narrative* Problem Noted Date Diagnosed Date Resolved Date Menstrual irregularity 04/11/201010/26 Overview: On SPrintec to regulate periods. Not sexually active per patient. documented as of this encounter (statuses as of 12/14/2022) [facility] Encounter for gynecological examination (general) (routine) without abnormal findings- Primary Encounter for Papanicolaou smear of vagina Screening for cervical cancer Screening for malignant neoplasm of the cervix Encounter for screening for human papillomavirus (HPV) Special screening examination for human papillomavirus (HPV) Screen for STD (sexually transmitted disease) Screening examination for venereal disease [facility] Diagnosis Thunderclap headache- Primary Headache Anxiety with depression documented in this encounter [facility] Reason for Referral Specialty Diagnoses / Procedures Referred By Tess goetz Referred To Contact [facility] Diagnoses Thunderclap headache Procedures MRI BRAIN WO IVCON MRI BRAIN BRAIN STEM W/O CONTRAST MATERIAL Guille Gates APRN.LIBRARIAN ASSISTANT [address] [place] [address] [place] [id number] Referral ID Status Reason Start Date Expiration Date Visits Requested Visits Authorized [id number] Pending Review Auto-Generat ed Referral 11/16/2022 12/16/2023 1 1 Summary Purpose Family History No Family History Records Found Advance Directives No Advanced Directives Records Found Additional Source Comments Source Comments (unrecognize d section and content) In the event this informatio n is protected by the Federal Confidentiality of Alcohol and Drug Abuse Patient Records regulations: The Federal rules restrict any use of the information to criminally investigate or prosecute any alcohol or drug abuse patient.[facility] the event this information is protected by the Federal Confidentiality of Alcohol and Drug Abuse Patient Records regulations: The Federal rules restrict any use of the information to criminally investigate or prosecute any alcohol or drug abuse patient.[facility] the event this information is protected by the Federal Confidentiality of Alcohol and Drug Abuse Patient Records regulations: The Federal rules restrict any use of the information to criminally investigate or prosecute any alcohol or drug abuse patient.[facility] the event this information is protected by the Federal Confidentiality of Alcohol and Drug Abuse Patient Records regulations: The Federal rules restrict any use of the information to criminally investigate or prosecute any alcohol or drug abuse patient.[facility] the event this information is protected by the Federal Confidentiality of Alcohol and Drug Abuse Patient Records regulations: The Federal rules restrict any use of the information to criminally investigate or prosecute any alcohol or drug abuse patient.[facility] Reason for Visit (unrecogniz ed section and content) Reason Comments Results Reason Comments Yearly Exam Specialty Diagnoses / Procedures Referred By Tess t Referred To Contact Diagnoses Encounter for Papanicolaou smear of vagina Procedures CONSULT TO GUM MACHINE FILLER OFFICE/OUTPATIENT [facility] HIGH MDM 60-74 MINUTES Guille Gates APRN.CNP [address] [place] [address] Referral ID Status Reason Start Date Expiration Date Visits Requested Visits Authorized [id number] Pending Review PCP Requested Referral Auto-Generate d Referral 10/17/2022 10/17/2023 1 1 Reason Comments Follow Up Care Teams (unrecognized sec tion and content) Contract Engineer Relationship Specialty Start Date End Date Guille Gates APRN.CNP [id number] [id number] PCP - General Family Medicine 10/17/22 Contract Engineer Relationship Specialty Start Date End Date Guille Gates APRN.LIBRARIAN ASSISTANT [address] [place] [id number] PCP - General Family Medicine 10/17/22 Contract Engineer Relationship Specialty Start Date End Date Guille Gates APRN.LIBRARIAN ASSISTANT [address] [place] [phone] PCP - General Family Medicine 10/17/22 Contract Engineer Relationship Specialty Start Date End Date Guille Gates APRN.LIBRARIAN ASSISTANT [address] [place] [id number] PCP - General Family Medicine 10/17/22 INFORMATION SOURCE (unrecogn ized section and content) FOR RECORDS PERTAINING TO PATIENTS WHO ARE OR HAVE BEEN ENROLLED IN A CHEMICAL DEPENDENCY/SUBSTANCEABUSE PROGRAM, SOME INFORMATION MAY BE OMITTED. This clinical summary was aggregated from multiple sources. Caution should be exercised in using it in the provision of clinical care. This summary normalizes information from multiple sources, and as a consequence, information in this document may materially change the coding, format and clinical context of patient data. In addition, data may be omitted in some cases. CLINICAL DECISIONS SHOULD BE BASED ON THE PRIMARY CLINICAL RECORDS. [employer] [facility]. provides no warranty or guarantee of the accuracy or completeness of information in this document.
== END 2023-03-23 07:22 | disposition home or self-care (01) ==
LOC: ED 07:19
PROVIDERS: Emergency Provider Emergency Medicine; Visit Provider Emergency Medicine
DX: K08.89 Other specified disorders of teeth and supporting structures (principal); K02.9 Dental caries, unspecified; F17.290 Nicotine dependence, other tobacco product, uncomplicated
CPT/HCPCS: 99282